=== PATIENT | female | born 1950 | race Caucasian/White ===

== ENCOUNTER 2016-08-03 07:13 | Emergency (ER) | payer OTHER ==
[~2016-08-03] VITALS: Ht 162.6 cm; Wt 68.2 kg
[2016-08-03 07:18] VITALS: BP 163/91; PULSE 94; RESP 20; O2SAT 98
--- NOTE | 2016-08-03 07:30 | ED.REPORT ---
HPI-Psychiatric Illness Date of Service Aug 03, 2016 ED Provider: Dr. Rui Gamez MD A 66 year old female with a history of anxiety presents to the ED complaining of worsening depression that began this morning. The patient's 1 year ago. She reports that her working environment has been stressful and has had several confrontations with her employer. The patient was scheduled to retire but was financially unable to. She has been unable to sleep and her family lives on the [facility]. 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 Patient reports that she thought about driving into the river after her passed but she denies any current suicidal ideation or homicidal ideation. Nursing Notes Stated Complaint: MENTAL HEALTH Chief Complaint: Psychiatric Complaint Nursing Notes Reviewed: Yes Allergies: Coded Allergies: codeine (Verified Allergy, Intermediate, 08/03/16) coffee (Coffea arabica) (Verified Allergy, Intermediate, lips swell up, 08/03/16) Scheduled PRN Hydroxyzine Pamoate (Vistaril) 25 Mg Capsule 10 MG PO TID PRN PRN For Anxiety General Time Seen by MD: 07:30 Chief Complaint Depressed Hx Obtained From: Patient Arrived By: Walk-in Onset Occurred: 5 - 8 hours ago Symptom Duration: Since onset Progression Since Onset: Unchanged Associated with: Reports: Anxiety, Depression Pertinent Negative: Pt denies other symptoms Recent Healthcare: No recent doctor visit, No recent hospitalization Risk-Psychiatric Illness Suicide Risk Stratification RF Statements: Risk factors reviewed Past Medical History Past Medical History Anxiety Past Surgical History None reported. Smoking History Unknown if Ever Smoker Social History Other Social History: Poor social support, Local resident Ambulatory Status Independent Review of Systems Constitutional: Denies: Chills, Fever Respiratory: Denies: Shortness of breath GI: Denies: Abdominal pain, Nausea, Vomiting Neurologic: Denies: Change LOC Psychiatric: Reports: Anxiety, Depression, Stress, Denies: Homicidal ideation, Suicidal ideation Complete sys rev & neg: except as marked. Physical Exam Initial Vital Signs Vital Signs (First) Date Time Temp Pulse Resp B/P Pulse Ox O2 Delivery O2 Flow Rate FiO2 08/03/16 07:18 37.4 94 20 163/91 98 Initial VS: Reviewed Head / Eyes: Atraumatic, Normocephalic, PERRL Neck: Supple, Non-tender, Full range of motion Respiratory: Breath sounds normal, Clear to auscultation, No respiratory distress Cardiovascular: Regular rate & rhythm, Heart sounds normal, Intact distal pulses Extremities: Vascular intact, Neuro intact, No swelling, No tenderness Skin: Warm, Dry, No cyanosis General/Constitutional: Awake, Alert Behavior: Positive: Tearful, Negative: Agitated GENERAL: Patient is sad Neurologic: Oriented X3, Speech NL, No motor deficits, No sensory deficits Psychiatric: Not suicidal, Not homicidal PSYCH: Patient is linear and organized No response to external stimuli Appropriate given the situation Interpretation & Diagnostics Lab Results Interpretation Test 08/03/16 07:42 Hold Urine Received (Received) Re-Eval/Medical Decision Med Decision/Clinical Course The patient is a 66-year-old female who presents with tearfulness, depression and anxiety in the setting of multiple stressors related to her work and the recent of her . She states that she feels like she needs help and someone to lean on she denies any suicidal ideation. She is linear/organized and given her multiple recent stressors her response seems appropriate. Urine drug screen and blood alcohol are negative. She has no signs of organic etiology of her symptoms and I do not feel that neuroimaging laboratory studies are indicated. The patient requested medication for anxiety will be provided with a prescription for Vistaril. In the past she has been prescribed antidepressants and will seek a prescription for antidepressants via her primary care physician or a psychiatrist. The patient was seen and evaluated by our emergency department social media campaign manager and provided with additional resources. We feel that she is appropriate for outpatient management from a psychiatric perspective. The patient verbalized understanding and agreement with the follow-up plan and was discharged in stable condition. Re-Evaluation/Progress : Time of Eval: 09:47 )( Re-Eval Psychiatric: No danger to self, No danger to others, No suicidal ideation, No homicidal ideation Patient Status: Condition improved Re-Evaluation/Progress Note: Patient is rechecked. She agrees to meet with [employer]ISHER. All of her questions are addressed. She agrees with current treatment plan. Counseled Regarding: Diagnosis, Need for follow-up, When/why to return to ED Discharge & Departure Impression: Primary Impression: Anxiety Additional Impressions: Depression Depression Type: unspecified Qualified Code: F32.9 - Major depressive disorder, single episode, unspecified Other social stressor Grief reaction )( Condition at Discharge: No danger to self, No danger to others, No suicidal ideation, No homicidal ideation Disposition: Home Discharge Condition All VS Reviewed: Yes Condition: Stable Patient Instructions: Generalized Anxiety Disorder (ED), Major Depression (GEN) Additional Instructions: Thank you for seeking care at emergency room. You were seen today due to grief and anxiety. Please follow up with the resources that were provided by our social work team. You may take vistaril for anxiety. You should return to the ED immediately if you develop any worsening symptoms, thoughts of harming yourself, if you feel that you are having a psychiatric or medical emergency, shortness of breath, chest pain, lightheadedness, weakness or any other concerning signs or symptoms. Thank you for letting us partake in your care today. Referrals: Js Samson MD (PCP) Scribe Attestation Portions of this note were transcribed by Patrick Vásquez. I, Dr. Gamez personally performed the history, physical exam and medical decision-making; I reviewed and confirmed the accuracy of the information in the transcribed note. Signed by: Patrick Vásquez, 08/03/16, 1019. copies to: Js Samson MD, Beck O MD Aug 03, 2016 07:30 PATRICK VÁSQUEZ Aug 03, 2016 08:33
[2016-08-03] MEDS ORDERED: HYDR25CA PO (10:11)
[2016-08-03 10:30] VITALS: BP 156/97; PULSE 80; RESP 18; O2SAT 97
--- NOTE | 2016-08-03 11:08 | NUR ---
Mental Health Evaluation Rachna Frias 08/03/2016 Reason for Hospital Visit: Mental Health, Psychiatric Complaint Precipitating Problem: The Pt self-presented to the ED, SW met with the Pt at bedside for mental health evaluation. The Pt reported a history of anxiety that began when she was 20 y/o. The Pt reports that her about one year ago and that she has had multiple other concerns causing a great amount of stress to include her employment, financial situation, and a recent . The Pt reported that she woke up around 3am and became hysterical, pulling at her hair, eyes and skin. She reports that this was a first time occurrence and decided to come in to the ED for help. The Pt reported sleep concerns which began about one year ago. She reports that she has been waking up around 3am every morning during the last year with overwhelming thoughts and not being able to get back to sleep. The Pt reports a decreased appetite also beginning about one year ago. The Pt states that she has comforting visions from the Lord, not like schizophrenic which are appropriate with respect to her mandaen beliefs and not to be considered in line with visual hallucinations. Pt requests anti-anxiety medications and outpatient mental health resources. Mental Status: The Pt is a 66 y/o female. The Pt is A/O x3. During the interview, the Pt was cooperative and appropriate but tearful at times. She was dressed in her street clothes and her hygiene was within normal limits. Pt made appropriate eye contact and her speech was normal in rate, volume, and tone. The Pt's affect was congruent, her mood was depressed and somewhat anxious at times. She denies current SI, HI or AV H. Psychiatric Hx: The Pt reports no previous hospitalizations. [facility] has no record of previous hospitalizations. The Pt reports being diagnosed with anxiety at the age of 20. She denies taking any medication for this. The Pt reports being formerly prescribed an anti-depressant for about a year from her PCP. Pt reported that she stopped taking the medication since the of her . She is not enrolled in any counseling or psychiatric services. CD Hx: None reported. BAL was 0, utox negative at the time of arrival to the ED. Legal Hx: None reported. Disposition/Plan: The Pt is not currently endorsing SI, HI or AV H. She is not an imminent risk to herself or others nor is gravely disabled by her mental health concerns. The Pt is not currently enrolled in counseling or psychiatric services, and is requesting anxiety medication. Request discussed with ED MD, Vistaril to be prescribed. SW also provided Pt with mental health resource list and discussed other options to include her immediate social support network such as her lutheran. The Pt feels safe to return home at this time. ALLIE conferred with ED MD and with OLGA LIDIA Mccoy and the decision was made to discharge Pt home today. Pt to enroll in outpatient mental health counseling. Pt to return to ED if she feels unable to remain safe. Trudi Cardoso, OLGA LIDIA Site Promotion Agent Kendra Mccoy, OLGA LIDIA, AAC
== END 2016-08-03 10:14 | disposition home or self-care (01) ==
LOC: SED 07:13
DX: F41.8 Other specified anxiety disorders (principal); F43.20 Adjustment disorder, unspecified; Z88.5 Allergy status to narcotic agent; Z91.018 Allergy to other foods

== ENCOUNTER 2016-11-22 12:10 | Emergency (ER) | payer OTHER ==
[~2016-11-22] VITALS: Ht 162.6 cm; Wt 72.7 kg
[~2016-11-22 12:10] MED LIST: HYDR25CA PO
[2016-11-22 12:21] VITALS: BP 140/91; PULSE 84; RESP 24; O2SAT 100
[2016-11-22] MEDS ORDERED: 0.9% Sodium Chloride 1,000 ML IV ONE (13:21)
[2016-11-22] MEDS ORDERED: Ondansetron 2 mg/mL 2 mL Inj IVPUSH PRN (13:25)
--- NOTE | 2016-11-22 13:34 | ED.REPORT ---
HPI-NVD Date of Service Nov 22, 2016 ED Provider: Maribel Gross MD Patient is a 66-year-old woman with substantial medical history presents to the emergency department by private vehicle after having a near syncopal event this morning, vomiting, and fecal incontinence. She denies any head trauma, losing consciousness, she said for the last month she has been noticing she has been getting dizzy when standing up particularly first thing in the morning when getting out of bed. She is accompanied by her daughter he states that her grandkids had rotavirus this previous week, and had not seen their grandma (the patient) until yesterday. Edith denies any abdominal pain, but states she does feel nauseous, has neck pain, and back pain which she says is chronic but worsening, she had tingling in both of her hands after vomiting. She denies any alcohol use, hematochezia, hematemesis, eating anything out of the ordinary , recent travel, or venturing into the [place] or being around natural bodies of water. She has 2 cats, and does not state they have been sick. She denies any rashes, chest pain, shortness of breath. She has been getting intermittent headaches when sitting up, denies any changes in vision such as curtains or black spots but does say she just feels like "feels like I am going to faint." Nursing Notes Stated Complaint: VOMITING,DIZZY,DIARRHEA,POSS PASSED OUT Chief Complaint: General Complaint Nursing Notes Reviewed: Yes Allergies: Coded Allergies: codeine (Verified Allergy, Intermediate, 11/22/16) coffee (Coffea arabica) (Verified Allergy, Intermediate, lips swell up, ) Scheduled PRN Hydroxyzine Pamoate (Vistaril) 25 Mg Capsule 10 MG PO TID PRN PRN For Anxiety Meclizine (Bonine) 25 Mg Tab.chew 25 MG PO BID PRN PRN For Dizziness Ondansetron (Zofran) 4 Mg Tablet 4 MG PO Q4H PRN PRN For Nausea General Time Seen by MD: 13:05 Chief Complaint Nausea, Vomiting, Other (Near syncope) Similar Sx Previous: No Past Medical History Past Medical History Panic disorder Hyperlipidemia Arthritis Anxiety Past Surgical History None reported. Family History Brother has depression Father has depression Mother has Parkinson's disease, depression, breast cancer, B12 deficiency Smoking History Never Smoker Social History Lives alone with 2 cats Alcohol Use: Denies alcohol use Other Social History: Poor social support, Local resident Ambulatory Status Independent Review of Systems Complete sys rev & neg: except as marked. Physical Exam General: Laying in bed, left lateral decubitus position, holding a waste bin with vomit in the bottom. Tired, but answers questions appropriately. HEENT: Normocephalic, atraumatic, EOMI grossly, mucous membranes mildly dry, neck is supple without lymphadenopathy, Cardiovascular: Regular rate and rhythm, no clicks murmurs rubs, peripheral pulses 2/4 equal bilaterally, orthostatics negative, Pulmonary: Clear to auscultation bilaterally, no W/R/R. Abdominal: Soft to palpation, bowel sounds present 4, no hepatosplenomegaly. Negative rebound. Extremities: No edema appreciated. No tenderness, asymmetry. Neuro: Neurologically grossly intact, strength is equal bilaterally upper and lower extremities. Normal HINTs exam MSK: Able to move extremities on their own volition, strength 5 out of 5 equal bilaterally to upper and lower extremities. Initial Vital Signs Vital Signs (First) Date Time Temp Pulse Resp B/P Pulse Ox O2 Delivery O2 Flow Rate FiO2 11/22/16 12:21 36.0 84 24 140/91 100 Room Air Initial VS: Reviewed Interpretation & Diagnostics Lab Results Interpretation Result Diagram: 11/22/16 1335 11/22/16 1335 Test 11/22/16 13:35 White Blood Count 10.4th/mm3 (3.8-10.1) Red Blood Count 4.16mil/mm3 (3.90-5.20) Hemoglobin 13.3g/dL (12.0-15.6) Hematocrit 38.0% (35.0-46.0) Mean Corpuscular Volume 91.3fL (81-100) Mean Corpuscular Hemoglobin 32.0pg (27.0-35.0) Mean Corpuscular Hemoglobin Concent 35.0% (32.0-37.0) Red Cell Distribution Width 12.6% (12.3-15.4) Platelet Count 269bil/L (150-400) Neutrophils (%) (Auto) 90.2% (40-74) Lymphocytes (%) (Auto) 6.5% (14-46) Monocytes (%) (Auto) 2.9% (4-12) Eosinophils (%) (Auto) 0% (0-5) Basophils (%) (Auto) 0.2% (0-3) Sodium Level 137mEq/L (134-144) Potassium Level 3.9mEq/L (3.5-5.2) Chloride Level 98mEq/L (97-108) Carbon Dioxide Level 21mmol/L (18-29) Blood Urea Nitrogen 12mg/dL (8-27) Creatinine 0.56mg/dL (0.57-1.00) Estimat Glomerular Filtration Rate 156mL/min (>59) Glucose Level 162mg/dL (60-99) Calcium Level 9.8mg/dL (8.5-10.1) Magnesium Level 1.8mg/dL (1.6-2.6) Total Bilirubin 0.6mg/dL (0.0-1.2) Aspartate Amino Transf (AST/SGOT) 27U/L (0-50) Alanine Aminotransferase (ALT/SGPT) 26U/L (0-32) Alkaline Phosphatase 81U/L (25-165) Total Protein 7.6g/dL (6.4-8.4) Albumin 4.6g/dL (3.4-5.0) Hold Dotson Top Tube Received (Received) Lab Results Interpretation: Very mild leukocytosis with left shift Hyperglycemia ECG Interpretation ECG Interpretation: Sinus rhythm, rate 65, normal axis SD interval 163 QTC 478 Re-Eval/Medical Decision Med Decision/Clinical Course Patient was evaluated for causes of her dizziness and near syncopal event. EKG was unremarkable. She received 1 L normal saline as well as Zofran, stated she felt a little better. Labs showed a left shift with mild leukocytosis, electrolytes were normal, however there was hyperglycemia. Based on her negative labs, EKG, physical exam findings, so that this was most likely BPPV. Findings and interpretation were discussed with the patient and daughter, patient was sent home with prescription for Zofran and meclizine. Return precautions and red flag symptoms were discussed with the patient and daughter, both stated understanding and agreement. Discharge & Departure Impression: Primary Impression: Vertigo Additional Impression: Near syncope Disposition: Home Patient Instructions: Vertigo (ED) Additional Instructions: Thank you for entrusting us with your care. The exact cause for your dizziness, nausea and vomiting were not found on today' s evaluation. The treatment for this is to treat the symptoms. Continue to stay well hydrated. You are being given a prescription for Zofran, please take this as needed for nausea. You are also being given a prescription for Antivert (meclizine) for dizziness. The goal is to stay ahead of her nausea see her able to keep down fluids and foods that you eat. If the dizziness gets worse, you are unable to keep down any foods or fluids, or you pass out and lose consciousness, please return to the emergency department. Experience any chest pain, shortness of breath, weakness to one side of your body, difficulty speaking, please call 911 immediately. Referrals: Js Samson MD (PCP) Attending Statement Patient seen and examined. No evidence of benign positional vertigo nor acute stroke Exposure to rotavirus about a week ago no diarrhea at this point minimal nausea Slightly improved with Zofran and meclizine and fluids Agree with charting as above copies to: Js Samson MD, Noah M DO Nov 22, 2016 13:34 Maribel Gross MD Nov 22, 2016 15:38
[2016-11-22 13:46] LABS: BASOPHILS % (AUTO) 0.2 % (0-3); EOSINOPHILS % (AUTO) 0 % (0-5); MONOCYTES % (AUTO) 2.9 % (4-12); Mean Corpuscular Volume 91.3 fL (81-100); NEUTROPHILS % (AUTO) 90.2 % (40-74); Platelet Count 269 bil/L (150-400)
[2016-11-22 14:11] LABS: Magnesium 1.8 mg/dL (1.6-2.6)
[2016-11-22 14:27] VITALS: BP_SYST 137; BP_SYST 139; BP_SYST 154; BP_DIAS 72; BP_DIAS 76; BP_DIAS 78
[2016-11-22] MEDS ORDERED: ONDA4TAB9 PO (14:47)
[2016-11-22] MEDS ORDERED: ONDA4TAB6 PO (15:04)
[2016-11-22] MEDS ORDERED: MECL-114 PO (15:04)
== END 2016-11-22 16:19 | disposition home or self-care (01) ==
LOC: SED 12:10
DX: R42 Dizziness and giddiness (principal); R55 Syncope and collapse; E78.5 Hyperlipidemia, unspecified; Z88.5 Allergy status to narcotic agent
CPT/HCPCS: 36415; 80053; 83735; 85025; 93005; 96361; 96374; 99284; J2405; J7030